=== PATIENT | female | born 1965 | race Caucasian/White ===

== ENCOUNTER 2025-01-31 05:58 | Inpatient (IN) ==
--- NOTE | 2024-11-14 09:19 | PAT Medication Instructions ---
Medication Instructions Date of Service November 14, 2024 Home Medications acetaminophen 650 mg tablet,extended release 500 mg PO TID PRN Pain albuterol sulfate 90 mcg/actuation aerosol inhaler 2 puff inhalation Q6H PRN Shortness Of Breath ascorbic acid (vitamin C) 500 mg tablet (Vitamin C) 500 mg PO QAM cholecalciferol (vitamin D3) 100 mcg (4,000 unit) capsule 4,000 unit PO QAM escitalopram oxalate 10 mg tablet 10 mg PO HS fluticasone propionate 50 mcg/actuation nasal spray,suspension (Flonase Allergy Relief) 1 spray intranasal QAM levothyroxine 150 mcg tablet 175 mcg PO QAM umeclidinium 62.5 mcg-vilanterol 25 mcg/actuation powdr for inhalation (Anoro Ellipta) 1 inh inhalation QAM pembrolizumab 25 mg/mL intravenous solution (Keytruda) 25 mg IV .Q6WK tramadol 50 mg tablet 50 mg PO TID ASK your prescriber and surgeon pembrolizumab 25 mg/mL intravenous solution (Keytruda) 25 mg IV .Q6WK DO NOT take the morning of surgery ascorbic acid (vitamin C) 500 mg tablet (Vitamin C) 500 mg PO QAM cholecalciferol (vitamin D3) 100 mcg (4,000 unit) capsule 4,000 unit PO QAM Take morning of surgery With a small sip of water, OTHERWISE NOTHING TO EAT OR DRINK AFTER MIDNIGHT: acetaminophen 650 mg tablet,extended release 500 mg PO TID PRN Pain (if needed) albuterol sulfate 90 mcg/actuation aerosol inhaler 2 puff inhalation Q6H PRN Shortness Of Breath (use if needed; please bring rescue inhaler with you to hospital day of surgery if possible) fluticasone propionate 50 mcg/actuation nasal spray,suspension (Flonase Allergy Relief) 1 spray intranasal QAM levothyroxine 150 mcg tablet 175 mcg PO QAM umeclidinium 62.5 mcg-vilanterol 25 mcg/actuation powdr for inhalation (Anoro Ellipta) 1 inh inhalation QAM tramadol 50 mg tablet 50 mg PO TID Take evening before surgery acetaminophen 650 mg tablet,extended release 500 mg PO TID PRN Pain (if needed) albuterol sulfate 90 mcg/actuation aerosol inhaler 2 puff inhalation Q6H PRN Shortness Of Breath (if needed) escitalopram oxalate 10 mg tablet 10 mg PO HS tramadol 50 mg tablet 50 mg PO TID Other Notes If you have any questions please call us at [phone] or [phone] or [phone] or [phone]
--- NOTE | 2024-11-19 13:11 | Anesthesiology Consultation ---
Date of Service November 19, 2024 Assessment & Plan (1) Encounter for pre-operative examination: Chart Review Chart Review: Pending: Refer to Additional Notes / Consult section (pending 11/22/[address], surgeon ordered PCP clearance 11/26/24, vascular surgeon evaluation ) and Patient seen in Pre Admission Testing - Please set up vascular surgeon optimization (discussed previous head/neck CTAs from [address] Pollard)- recommends vascular evaluation prior to surgery - please send optimization form along with head CTA 07/26/22 and head/neck CTA 07/22/[address] Biggs's office - Please obtain chest CT scheduled 11/22/24 at [facility] - Awaiting PCP clearance 11/26/24 ([facility]) Per PAT appt on 11/19/24, no recent illness/disease exposures, illness related symptoms, or recent illness/disease positive tests. Will leave to surgeon's discretion if preop Covid testing needed Pt seen by neurosurgery 08/10/22= Seen for routine follow up after recent hospital visit. Subarachnoid hemorrhagesmall frontal on head CT from outside hospital 07/2022. Patient underwent CTA showing no underlying vascular pathology. Patient discharged and presented to ED few days later with persistent headaches. Another CTA completed again showed no underlying vascular pathology. Patient presents today in clinic without complaint. Headaches are resolved and patient feels fine. Patient had repeat noncontrast head CT 08/05/2022 showing near total resolution of previously identified subarachnoid hemorrhage. Imaging results reviewed with patient. No further imaging needed. Return to clinic as needed. Teaching & Discussion Pre-Anesthesia Teaching/Discussion Notes: Instructed NPO after midnight before surgery,except medications with 15 cc of water. Medication instructions provided according to the PAT guidelines. History Surgery Operation Date: 12/10/24 10:05 Proposed Procedures p L4-S1 Decompression and Fusion with Spinal Cord Monitoring - Jc Nur, Height/Weight Height: 5 ft 6 in Weight: 111.3 kg Allergies Allergy/AdvReac Type Severity Reaction Status Date / Time egg Allergy Mild nasal Verified 11/08/24 08:54 congestion mold Allergy Mild nasal Verified 11/08/24 08:54 congestion/headache Penicillins Allergy Mild Rash Verified 11/08/24 08:54 fentanyl AdvReac Mild "kept me Verified 11/08/24 08:54 awake that night afterwards, I could not sleep" Medications Home Medications Medication Instructions Recorded Confirmed Last Taken acetaminophen 650 mg 500 mg PO TID PRN Pain 04/27/23 11/08/24 Unknown tablet,extended release albuterol sulfate 90 mcg/actuation 2 puff inhalation Q6H PRN 04/27/23 11/08/24 Unknown aerosol inhaler Shortness Of Breath ascorbic acid (vitamin C) 500 mg 500 mg PO QAM 04/27/23 11/08/24 Unknown tablet (Vitamin C) cholecalciferol (vitamin D3) 100 4,000 unit PO QAM 04/27/23 11/08/24 Unknown mcg (4,000 unit) capsule escitalopram oxalate 10 mg tablet 10 mg PO HS 04/27/23 11/08/24 Unknown fluticasone propionate 50 1 spray intranasal QAM 04/27/23 11/08/24 Unknown mcg/actuation nasal spray,suspension (Flonase Allergy Relief) levothyroxine 150 mcg tablet 175 mcg PO QAM 04/27/23 11/08/24 Unknown umeclidinium 62.5 mcg-vilanterol 1 inh inhalation QAM 04/27/23 11/08/24 Unknown 25 mcg/actuation powdr for inhalation (Anoro Ellipta) pembrolizumab 25 mg/mL intravenous 25 mg IV .Q6WK 11/08/24 11/08/24 Unknown solution (Keytruda) tramadol 50 mg tablet 50 mg PO TID 11/08/24 11/08/24 Unknown pantoprazole PRN reflux 11/19/24 Unknown Past Medical History Medical History Anxiety Brain bleed - Subarachnoid hemorrhage 07/2022- had epidural injection - developed headache- suspected spinal fluid leak- had blood patch completed. Later presented to hospital- CT scan showed small left frontal subarachnoid hemorrhage - Seen by [facility] neurosurgery 08/2022- no further imaging needed. Follow up PRN - Pt denies any current issues Chronic back pain Chronic obstructive pulmonary disease inhaler daily and prn--per pt is well controlled DVT (deep venous thrombosis) Possibly- during 20+ years ago- no known current issues GERD (gastroesophageal reflux disease) Occ- diet dependent- relieved with OTC antacids History of COVID-19 x2--last 2021--mild symptoms, no symptoms now History of lung cancer dx 07/2023- completed chemo in 2023; currently in remission>> follows w/ Dr Hiren turcios, [place], [place]; follows with pulm on Keytruda History of skin cancer removed in office Hypertension Hypothyroidism Post surgical Lower extremity edema Chronic - x 5-7 years s/p LE ablation on each leg for LE venous insufficiency LE edema - chronic and stable Morbid obesity with BMI of 40.0-44.9, adult Prediabetes diet controlled PVD (peripheral vascular disease) - Complete occlusion of left ICA with distal supraclinoid reconstitution per 07/22/22 neck/head CTA; numerous intracranial arterial stenoses per 07/26/22 head CTA Sleep apnea cpap Thyroid cancer 2016-- s/p thyroidectomy Urinary incontinence Exercise / Class Metabolic Activity III < 4 Walking/Shop/Light housework (no chest pain or SOB with flat surface ambulation ) Past Family History Family History Other No family history of adverse response to anesthesia Past Surgical History Surgical History History of cholecystectomy History of colonoscopy History of esophagogastroduodenoscopy (EGD) History of lung biopsy 08/2023 History of nasal polypectomy History of surgical removal of ganglion cyst x2--one on each wrist History of tonsillectomy and adenoidectomy x2 History of total thyroidectomy 2017 for thyroid cancer @ [facility] [place] History of varicose vein ligation one in each leg History of wisdom tooth extraction Past Anesthesia History No Hx of Anesthesia Complications and No Family Hx of Anesthesia Complications History of PONV No Hx of PONV and Hx of Motion Sickness Social History Smoking Status: Former smoker Do You Dip or Chew Tobacco: No Smoking End Date: quit 08/2023 Hx Alcohol Use: No Hx Substance Use: No substance use type: does not use Review of Systems - Chronic cough- secondary to COPD- stable - Chronic sneezing - secondary to allergies- stable Patient denies chest pain, shortness of breath at rest, wheezing, palpitations. No hx of seizures, stroke, [place]. No hx of blood clots or blood transfusions Physical Exam Vital Signs VITALS BP 111/77 P 74 TEMP 97.7 SP02 94% RESP 16 Constitutional no acute distress ENMT Mouth: no TMJ clicking Thyromental Distance: > or= 3.5 Finger Breadths (3.5) Mallampati Class: III Permanent implants to front teeth Missing side teeth Neck + limited neck extension Respiratory normal respiratory effort; no respiratory distress Auscultation: lungs clear to auscultation bilaterally; no wheezes Cardiovascular Rate/Rhythm: regular rate and regular rhythm Heart Sounds: no murmur Vessels: no carotid bruit Musculoskeletal Spine: + pain with cervical ROM (minimal) Extremities: extremities normal to inspection Psychiatric Orientation: alert Lab Results Anesthesia Preop Results Results Anesthesia Widget: PT 10.2 Seconds (9.0-12.0) 11/19/24 PTT 29 Seconds (21-31) 11/19/24 INR 0.9 (0.9-1.1) 11/19/24 HA1c 6.1 % (4.5-5.6) H 11/19/24 Urine Color Yellow 11/19/24 Urine Appearance Clear (Clear) 11/19/24 Urine pH 5.5 (4.5-7.5) 11/19/24 Urine Specific [place] 1.025 (1.000-1.030) 11/19/24 Urine Protein Negative (Negative) 11/19/24 Urine Glucose (UA) Negative (Negative) 11/19/24 Urine Ketones Trace (Negative) H 11/19/24 Urine Blood Negative (Negative) 11/19/24 Urine Nitrite Negative (Negative) 11/19/24 Urine Bilirubin Negative (Negative) 11/19/24 Urine Urobilinogen Negative (Negative) 11/19/24 Urine Leukocyte Esterase Negative (Negative) 11/19/24 Blood Type A Positive 11/19/24 Antibody Screen NEGATIVE 11/19/24 Testing Laboratory Results 11/15/24= WBC: 5.8 H/H: 13.5/39.2 PLATELETS: 288 SODIUM: 137 POTASSIUM: 3.7 CHLORIDE: 106 CO2: 22 BUN: 23 CREATININE: 1.11 GLUCOSE: 109 Electrocardiogram Date: 11/19/24 Findings: + NSR @ (68bpm) Normal EKG per cardio Other Testing CT head/brain 08/05/2022 = small amount of residual subarachnoid hemorrhage seen along the left frontal convexity, decreased from the prior head CT. Mucous retention cyst within the left maxillary sinus. Head CTA 07/26/2022 = intracranial portions of right ICA demonstrated mild atherosclerotic plaque without significant stenosis or aneurysm. Intracranial portions of left internal carotid artery are completely occluded. Multifocal moderate stenosis are seen throughout the right and left M2 and M3 branchesunchanged from prior. Multifocal mild stenosis seen in the right and left A2 and A3 branchesunchanged from prior. Mild stenosis of the left P2P3 junctionunchanged from prior. Impression: Numerous intracranial arterial stenosis. These are grossly unchanged compared to the prior recent studies. While there is no definite beaded appearance, the stenosis are more numerous and more prominent than is typical for patient's age and a component of vasculitis or vasospasm is not excluded. Head/neck CTA 07/22/2022 = complete occlusion of the left ICA with distal supraclinoid reconstitution. 50% stenosis of the mid left common carotid artery. Right sided persistent circulation. No intracranial aneurysm identified.
[2025-01-31] MEDS: ACETAMINOPHEN 500 MG TAB PO SCH (06:39)
[2025-01-31] MEDS: CeleBREX 200 MG CAP PO SCH (06:39)
[2025-01-31] MEDS: GABAPENTIN 600 MG DOSE PO SCH (06:39)
[2025-01-31] MEDS: LR 15ML/HR IV SCH (06:40)
[2025-01-31] MEDS: LR 60ML/HR IV SCH (06:40)
[2025-01-31] MEDS ORDERED: MIDAZOLAM HCL 1 MG/ML 2ML VIAL ONE (07:15)
[2025-01-31] MEDS ORDERED: PHENYLEPHRINE HCL 10 MG/ML VIAL ONE (07:15)
[2025-01-31] MEDS ORDERED: DEXAMETHASONE SOD INJ 4 MG/ML VIAL ONE (07:15)
[2025-01-31] MEDS ORDERED: DexMEDEtomidine HCL IV 100 MCG/ML VIAL IV ONE (07:15)
[2025-01-31] MEDS ORDERED: ONDANSETRON INJ 2 MG/ML 2 ML VIAL ONE (07:15)
[2025-01-31] MEDS ORDERED: SODIUM CHLORIDE 0.9% PF INJ 10 ML VIAL ONE (07:15)
[2025-01-31] MEDS ORDERED: KETAMINE HCL 10MG/ML SYR ONE (07:15)
[2025-01-31] MEDS ORDERED: ROCURONIUM BROMIDE 10 MG/ML 5 ML VIAL IV ONE ×2 (07:15→08:42)
[2025-01-31] MEDS ORDERED: HYDROmorphone INJ 2 MG/ML SYR/VIAL ONE (07:15)
[2025-01-31] MEDS ORDERED: LIDOCAINE 2% 2 ML VIAL/AMP(20MG/ML) INFIL ONE (07:15)
[2025-01-31] MEDS ORDERED: PROPOFOL IV EMULSION 10 MG/ML 20 ML VIAL IV ONE (07:26)
--- NOTE | 2025-01-31 07:52 | History & Physical Bridge Note ---
Date of Service January 31, 2025 History & Physical Bridge Note I have examined the patient, reviewed the History & Physical and in the interval since the performance of the History & Physical I have noted the following changes of clinical significance: no changes noted
--- NOTE | 2025-01-31 07:53 | History & Physical Report ---
Date of Service January 31, 2025 Assessment & Plan (1) Multilevel lumbosacral spondylosis with radiculopathy: Plan: L4-S1 decompression and fusion History of Present Illness Chief Complaint: Back and leg pain Primary Care Provider: Rogelio Yeboah This is a 59-year-old female presents chronic persistent back and leg pain after failing course of nonoperative care is here for surgical invention. Allergies Allergy/AdvReac Type Severity Reaction Status Date / Time egg Allergy Mild nasal Verified 01/31/25 06:18 congestion mold Allergy Mild nasal Verified 01/31/25 06:18 congestion/headache Penicillins Allergy Mild Rash Verified 01/31/25 06:18 fentanyl AdvReac Mild "kept me Verified 01/31/25 06:18 awake that night afterwards, I could not sleep" Home Medications Medication Instructions Recorded Confirmed Type acetaminophen 650 mg 500 mg PO TID PRN Pain 04/27/23 01/31/25 History tablet,extended release albuterol sulfate 90 mcg/actuation 2 puff inhalation Q6H PRN 04/27/23 01/31/25 History aerosol inhaler Shortness Of Breath ascorbic acid (vitamin C) 500 mg 500 mg PO QAM 04/27/23 01/31/25 History tablet (Vitamin C) cholecalciferol (vitamin D3) 100 4,000 unit PO QAM 04/27/23 01/31/25 History mcg (4,000 unit) capsule escitalopram oxalate 10 mg tablet 10 mg PO HS 04/27/23 01/31/25 History fluticasone propionate 50 1 spray intranasal QAM 04/27/23 01/31/25 History mcg/actuation nasal spray,suspension (Flonase Allergy Relief) levothyroxine 150 mcg tablet 175 mcg PO QAM 04/27/23 01/31/25 History umeclidinium 62.5 mcg-vilanterol 1 inh inhalation QAM 04/27/23 01/31/25 History 25 mcg/actuation powdr for inhalation (Anoro Ellipta) pembrolizumab 25 mg/mL intravenous 25 mg IV .Q6WK 11/08/24 01/31/25 History solution (Keytruda) tramadol 50 mg tablet 50 mg PO TID 11/08/24 01/31/25 History pantoprazole 40 mg PO DAILY PRN reflux 11/19/24 01/31/25 History atorvastatin 40 mg tablet 40 mg PO QAM 01/24/25 01/31/25 History Past Med/Surg History Problem List (Updated 01/31/25 @ 07:53 by Jc Nur DO) Multilevel lumbosacral spondylosis with radiculopathy Encounter for pre-operative examination Medical History (Updated 01/31/25 @ 07:53 by Jc Nur DO) Dyslipidemia Port-A-Cath in place Anxiety Prediabetes diet controlled History of lung cancer dx 07/2023- completed chemo in 2023; currently in remission>> [place] follows with pulm on Keytruda PVD (peripheral vascular disease) - Complete occlusion of left ICA with distal supraclinoid reconstitution per 07/22/22 neck/head CTA; numerous intracranial arterial stenoses per 07/26/22 head CTA > 01/2025, pt states she saw a vascular doctor- no intervention felt necessary at this time GERD (gastroesophageal reflux disease) Occ- diet dependent- relieved with OTC antacids DVT (deep venous thrombosis) Possibly- during 20+ years ago- no known current issues Lower extremity edema Chronic - x 5-7 years s/p LE ablation on each leg for LE venous insufficiency LE edema - chronic and stable Morbid obesity with BMI of 40.0-44.9, adult Chronic back pain Urinary incontinence Hypothyroidism Post surgical History of skin cancer removed in office Thyroid cancer 2017-- s/p thyroidectomy Hypertension Sleep apnea cpap History of COVID-19 x2--last 2021--mild symptoms, no symptoms now Chronic obstructive pulmonary disease inhaler daily and prn--per pt is well controlled Brain bleed - Subarachnoid hemorrhage 07/2022- had epidural injection - developed headache- suspected spinal fluid leak- had blood patch completed. Later presented to hospital- CT scan showed small left frontal subarachnoid hemorrhage - Seen by [facility] neurosurgery 08/2022- no further imaging needed. Follow up PRN - Pt denies any current issues Surgical History History of lung biopsy 08/2023 History of surgical removal of ganglion cyst x2--one on each wrist History of colonoscopy History of esophagogastroduodenoscopy (EGD) History of cholecystectomy History of varicose vein ligation one in each leg History of wisdom tooth extraction History of total thyroidectomy 2017 [place] [facility] [place] History of tonsillectomy and adenoidectomy x2 History of nasal polypectomy Family History Other No family history of adverse response to anesthesia Social History Smoking Status: Former smoker Tobacco Type: Cigarettes Smoking End Date: Aug 2023; Second Hand Exposure: No; Do You Dip or Chew Tobacco: No; Tobacco Cessation Education Requested by Patient: No Hx Alcohol Use: No Hx Substance Use: No Preferred Language: [place] Communication Ability: Effective Service Advocate Contact Required: No Beliefs That Will Affect Care: None Current Living Situation: Spouse Current Living Situation Comment: Lives with and son Other Information That Helps Us Care for You: No Feels Safe at Home: Yes Safety Concerns: Feels Safe At This Time Assistive Devices: Contacts, CPAP and Glasses Assistive Devices Comment: perm bridge Physical Exam Physical Exam: Patient is alert and oriented Heart regular rhythm lungs clear Results & Data Results & Data Vital Signs (Past 12 Hours) Vital Signs Temp Pulse Resp BP Pulse Ox O2 Del Method 01/31/25 06:33 Room Air 01/31/25 06:30 36.9 C 72 95 H 138/69 95 Room Air
[2025-01-31] MEDS: BUPIVACAINE/EPINEPHRINE 0.25% 1:200,000 30 ML VIAL ONE (09:05)
[2025-01-31] MEDS: ceFAZolin 330 MG/ML 1 GM VIAL ONE (09:07)
[2025-01-31] MEDS: FLOSEAL HEMOSTATIC MATRIX 10ML TOP ONE (09:58)
[2025-01-31] MEDS ORDERED: SUGAMMADEX SODIUM 200 MG/2 ML VIAL IV ONE (10:02)
--- NOTE | 2025-01-31 10:26 | Operative Report ---
Post Operative Report Pre & Post Diagnosis Operation Date: 01/31/25 07:45 Pre-Op Diagnosis: #1 multilevel Lumbosacral Spondylosis with radiculopathy #2 lumbar spinal stenosis Post-Op Diagnosis: Same I identified the patient and participated in the time-out.: Yes Procedure Operation Date: 01/31/25 07:45 Actual Procedures #1 lumbar decompression bilaterally facetectomies and foraminotomies L3-L4, L4- L5 and L5-S1. #2 posterior spinal fusion L4-S1. #3 placement posterior instrumentation L4-S1 using Laguerre. #4 interbody fusion L4-L5 L5-S1. #5 plac ement Spira 13 x 26 mm x 2 at L4-L5 and 11 x 26 mm x 2 at L5-S1. #6 placement locally harvested morselized autograft and posterior gutters. #7 placement infuse collagen sponge combined with Koros in the posterior lateral gutters and os design in the interbody space. #8 application of versa wrap over the exposed dura. Surgeon Jc Nur, DO Founder President And Ce[employer] None Estimated Blood Loss 450 Findings See Below The patient is 5 foot 6 weighing 112 kg with a BMI in excess of 39. The patient's body habitus did contribute to significant technical difficulty from positioning exposure and the procedure itself. This at least 50% increased operative time. And recommending a modifier 22. Specimens None Indications This is a 59-year-old female presents publish diagnosis with a failing course of nonoperative care is here for the above-mentioned procedure. Description of Procedure Patient was met with identified informed consent obtained. Patient was then taken to the operative suite underwent intubation placed in a prone position on the Bertin table top of the Jus frame. Operative promises well-padded eyes inspected to ensure no external precipice upon them. This point lumbar spine was prepped and draped in normal sterile fashion. Sharp dissection with the assistance of Bovie cautery performed down to and exposing the lamina transverse processes of L4-5 and the sacral ala bilaterally. From caudal to cephalad fashion complete laminectomy L5 L4 including bilateral medial facetectomies and foraminotomies. A partial laminectomy of L3 was performed including bilateral medial facetectomies to address all subarticular stenosis. Pedicle screws were then placed in L3-4 L5 and S1 levels bilaterally with assistance of fluoroscopy and the properly sized caridad placed. By way of a transforaminal approach on the right a discectomy of L5-S1 was performed endplates guided to subcortically bone and 11 x 26 mm spiral cage tapped into position. Then proceeded to the left transforaminal region at L5-S1. Again discectomy performed. Endplates corrected to subcortical bleeding bone. A second 11 x 26 mm spiral cage tapped in position. Then proceeded L4-L5 and by way the transforaminal approach on the left discectomy was performed. Endplates guided to subcortical bleeding bone and a 13 x 26 mm spiral cage filled was tapped into position. Then proceeded the right transforaminal region at L4-5. Again discectomy performed. Endplates guided to subcortical bleeding bone. A second 13 x 26 mm spiral cage was tapped into position. Please note all cages were filled with os design bone graft. Steri-Strips sterile dressing placed. Patient waken taken PACU stable condition. the rods were then compressed locked in final position bilaterally. The transverse processes of L4-L5 and the sacral ala burred to subcortical bleeding bone. Infuse collagen sponge bath Koros and local autograft placed in posterior gutters. Versa wrap placed of exposed dura. 15 round GALE drain inserted. The incision was then closed with subcutaneous Vicryl and 4 Monocryl for final skin closure. Steri-Strips sterile dressing placed. Patient waken taken PACU stable condition. Im ordering 10 grams of Collagen Powder ([facility] A6010 Primary Dressing) and 10 bordered super absorbent ([facility] A6196 Secondary Dressing) to treat an incision wound that was caused by a spine procedure. The incision is approximately 2 cm(W) x 2 cm(L) down to the spinal column and epidural space 2 cm (D) in size and is a full thickness wound showing no signs of infection. Collagen comes in 1 gram packets so 10 packets were ordered. Given the size of the wound, with moderate exudate I chose to order a 10 day supply. The patient will be provided instructions for proper application of the collagen wound kit. The patient will be asked to apply the collagen powder daily and then cover it with sterile dressings dispensed. Collagen was selected as I expect the collagen to attract monocytes and fibroblasts, act as a sacrificial substrate for MMPs, and ultimately proved a matrix for tissue and vessel growth. The collagen will act as a primary dressing in this scenario. It is medically necessary for proper healing of these wounds to improve bioavailability and contact with each wound surface, this is also to help prevent infection of wounds and promote healing ultimately leading to a better healing outcome and limit the risk of infection. I attest to the content of the Intraoperative Record and any orders documented therein. Any exceptions are noted below.
[2025-01-31] MEDS ORDERED: ONDANSETRON INJ 2 MG/ML 2 ML VIAL IV PRN (10:40)
[2025-01-31] MEDS ORDERED: ATROPINE SULFATE 0.1 MG/ML 10ML SYR IV PRN (10:40)
[2025-01-31] MEDS: HYDROmorphone INJ 1 MG/ML SYRINGE IV PRN (10:50)
[2025-01-31] MEDS: HYDROmorphone INJ 1 MG/ML SYRINGE ONE (11:05)
--- NOTE | 2025-01-31 11:31 | Anesthesiology Progress Note ---
Date of Service January 31, 2025 Anesthesia Post Procedure Vital Signs Vital Signs: Temp Pulse Pulse Resp BP Pulse Ox O2 Del Method 01/31/25 11:30 74 12 109/67 95 Nasal Cannula 01/31/25 11:20 36.4 C L 73 12 110/69 95 Nasal Cannula 01/31/25 11:10 88 14 136/66 96 Oxymask 01/31/25 11:00 79 14 130/79 97 Oxymask 01/31/25 10:50 77 12 125/78 95 Oxymask 01/31/25 10:40 85 12 138/66 97 Oxymask 01/31/25 10:30 36.1 C L 80 20 143/75 H 97 Oxymask 01/31/25 06:33 Room Air 01/31/25 06:30 36.9 C 72 95 H 138/69 95 Room Air O2 Flow Rate 01/31/25 11:30 3 01/31/25 11:20 3 01/31/25 11:10 2 01/31/25 11:00 4 01/31/25 10:50 4 01/31/25 10:40 4 01/31/25 10:30 6 01/31/25 06:33 01/31/25 06:30 Pain Intensity Back: Pain Intensity: 3 Transfer of Care Handoff Completed per policy Notes Mental Status: alert / awake / arousable and participated in evaluation Patient Amnestic to Procedure: Yes Nausea / Vomiting: adequately controlled Pain: adequately controlled Airway Patency, RR, SpO2: stable & adequate BP & HR: stable & adequate Hydration State: stable & adequate Anesthetic Complications: no major complications apparent and Pt Satisfied with anesthetic care
--- NOTE | 2025-01-31 12:05 | Fluoroscopy Report ---
FL lumbar spine 2-3V CLINICAL HISTORY: L4-S1 D/F COMPARISON STUDY: 9 FLUOROSCOPY TIME: 17 seconds FLUOROSCOPY IMAGES: 3 EXPOSURE DOSE: 17 mGy FINDINGS: Fluoroscopy was provided for lumbar surgery. IMPRESSION: Intraoperative fluoroscopy. ACT 112: Negative or not required by law. Electronically signed by: Ranjan Coulter M.D. 01/31/2025 12:03 PM
[2025-01-31] MEDS ORDERED: DO NOT ADMINISTER FLU VACCINE PRN (12:16)
[2025-01-31] MEDS ORDERED: DO NOT ADMINISTER PNEUMOCOCCAL VACCINE PRN (12:16)
[2025-01-31] MEDS ORDERED: ONDANSETRON 4 MG OD TAB PO PRN (12:16)
[2025-01-31] MEDS ORDERED: ACETAMINOPHEN 1,000 MG/100 ML VIAL IV PRN (12:16)
[2025-01-31] MEDS ORDERED: diphenhydrAMINE Capsule 25 MG CAP PO PRN (12:16)
[2025-01-31] MEDS ORDERED: LORazepam 0.5 MG TAB PO PRN (12:16)
[2025-01-31] MEDS ORDERED: ALBUTEROL HFA 8 GM INHALER INH PRN (12:16)
[2025-01-31] MEDS ORDERED: PROMETHAZINE 12.5 MG/50.5 ML BAG IV PRN (12:16)
[2025-01-31] MEDS ORDERED: NALOXONE HCL 0.4 MG/1 ML VIAL/CARP IV PRN (12:16)
[2025-01-31] MEDS ORDERED: SOD PHOSPHATE/SOD BIPHOSPHATE ENEMA 132 ML BTL PR PRN (12:16)
[2025-01-31] MEDS ORDERED: ALUMINUM/MAGNESIUM SUSP 30 ML UDC PO PRN (12:16)
[2025-01-31] MEDS ORDERED: METOCLOPRAMIDE HCL INJ 5 MG/ML 2 ML VIAL IV PRN (12:16)
--- NOTE | 2025-01-31 13:21 | Consultation ---
Date of Consultation January 31, 2025 Assessment & Plan (1) Multilevel lumbosacral spondylosis with radiculopathy: (2) Bilateral carotid artery stenosis: (3) Dyslipidemia: (4) Hypothyroidism: (5) Chronic obstructive pulmonary disease: (6) Anxiety: (7) GERD (gastroesophageal reflux disease): Plan 59 year old female with PMH significant for CAD, bilateral carotid artery stenosis, history of thyroid cancer s/p thyroidectomy and post-surgical hypothyroidism, COPD, GERD, anxiety, history of stage IV carcinoma of the lung in remission on Keytruda, and multilevel lumbosacral spondylosis with radiculopathy who is status post L4-S1 decompression and fusion on 01/31/[address] Nur. We have been consulted for post operative medical management. Multilevel lumbosacral spondylosis with radiculopathy POD#0 L4-S1 decompression and fusion on 01/31/[address] Nur Activity level, pain control, bowel regimen, DVT prophylaxis per primary team Encourage incentive spirometry PT/OT in am Monitor am labs for post-op anemia - EBL 450cc Bilateral carotid artery stenosis Follows with Vascular Surgery for medical management Continue atorvastatin Hypothyroidism Continue levothyroxine COPD Continue inhalers GERD Continue pantoprazole Anxiety Continue escitalopram History of lung cancer In remission On Keytruda every 6 weeks DVT Prophylaxis: SCDs and TEDs per primary team Code Status: FULL CODE - As per discussion at bedside with the patient. PCP: Rogelio Yeboah ([facility]) Patient seen in collaboration with Dr Patton. Please see addendum. Thank you for this consultation. We will continue to follow this patient with you. [facility] available 27/02 via the role in [employer] - please don't hesitate to reach out with questions. I spent a total of 60 minutes coordinating, documenting and providing care for this patient excluding time spent in the performance of separately billed services or time spent by another provider/QHP. Supervising Physician Co-Signing Physician Notes 59-year-old lady was seen and examined at bedside as medical consult status post L4 - S1 decompression and fusion. Patient reports improvement in her BLE radicular signs and symptoms, reports operative site pain under control, denies recent flulike illness or febrile illness, is not on blood thinner at home. Pain management, nausea control, bowel regimen. DVT prophylaxis and PT as per primary team. Watch for acute blood loss anemia, labs in AM. On exam: Patient on 2 L oxygen via nasal cannula, low back dressing w/o soakage, GALE drain with serosanguineous collection. Rest of the examination as above. Total time spent independently: 15 minutes. I have seen and examined the patient and have discussed the case with the provider above. I agree with the assessment and plan as stated.Follow-up History of Present Illness Requesting Physician: Jc Nur DO Reason for Consultation: Post operative medical management Attending Physician: Jc Nur DO History of Present Illness 59 year old female with PMH significant for CAD, bilateral carotid artery stenosis, history of thyroid cancer s/p thyroidectomy and post-surgical hypothyroidism, COPD, GERD, anxiety, history of stage IV carcinoma of the lung in remission on Keytruda, and multilevel lumbosacral spondylosis with radiculopathy who is status post L4-S1 decompression and fusion on 01/31/[address] Nur. We have been consulted for post operative medical management. Patient was seen in her room post-operatively. She reports she is doing well. No co mplaints of pain. Reports slight numbness in her left toes. Denies headaches, dizziness, chest pain, SOB, abdominal pain, N/V/D. She was able to eat lunch. Allergies Allergy/AdvReac Type Severity Reaction Status Date / Time egg Allergy Mild nasal Verified 01/31/25 06:18 congestion mold Allergy Mild nasal Verified 01/31/25 06:18 congestion/headache Penicillins Allergy Mild Rash Verified 01/31/25 06:18 fentanyl AdvReac Mild "kept me Verified 01/31/25 06:18 awake that night afterwards, I could not sleep" Home Medications Medication Instructions Recorded Confirmed Type acetaminophen 650 mg 500 mg PO TID PRN Pain 04/27/23 01/31/25 History tablet,extended release albuterol sulfate 90 mcg/actuation 2 puff inhalation Q6H PRN 04/27/23 01/31/25 History aerosol inhaler Shortness Of Breath ascorbic acid (vitamin C) 500 mg 500 mg PO QAM 04/27/23 01/31/25 History tablet (Vitamin C) cholecalciferol (vitamin D3) 100 4,000 unit PO QAM 04/27/23 01/31/25 History mcg (4,000 unit) capsule escitalopram oxalate 10 mg tablet 10 mg PO HS 04/27/23 01/31/25 History fluticasone propionate 50 1 spray intranasal QAM 04/27/23 01/31/25 History mcg/actuation nasal spray,suspension (Flonase Allergy Relief) levothyroxine 150 mcg tablet 175 mcg PO QAM 04/27/23 01/31/25 History umeclidinium 62.5 mcg-vilanterol 1 inh inhalation QAM 04/27/23 01/31/25 History 25 mcg/actuation powdr for inhalation (Anoro Ellipta) pembrolizumab 25 mg/mL intravenous 25 mg IV .Q6WK 11/08/24 01/31/25 History solution (Keytruda) tramadol 50 mg tablet 50 mg PO TID 11/08/24 01/31/25 History pantoprazole 40 mg PO DAILY PRN reflux 11/19/24 01/31/25 History atorvastatin 40 mg tablet 40 mg PO QAM 01/24/25 01/31/25 History Patient History Medical History (Updated 01/31/25 @ 13:15 by HARLEY Santoro) Bilateral carotid artery stenosis Encounter for pre-operative examination Dyslipidemia Port-A-Cath in place Anxiety Prediabetes diet controlled History of lung cancer dx 07/2023- completed chemo in 2023; currently in remission[place] follows with pulbreana on Keytruda PVD (peripheral vascular disease) - Complete occlusion of left ICA with distal supraclinoid reconstitution per 07/22/22 neck/head CTA; numerous intracranial arterial stenoses per 07/26/22 head CTA > 01/2025, pt states she saw a vascular doctor- no intervention felt necessary at this time GERD (gastroesophageal reflux disease) Occ- diet dependent- relieved with OTC antacids DVT (deep venous thrombosis) Possibly- during 20+ years ago- no known current issues Lower extremity edema Chronic - x 5-7 years s/p LE ablation on each leg for LE venous insufficiency LE edema - chronic and stable Morbid obesity with BMI of 40.0-44.9, adult Chronic back pain Urinary incontinence Hypothyroidism Post surgical History of skin cancer removed in office Thyroid cancer 2017-- s/p thyroidectomy Hypertension Sleep apnea cpap History of COVID-19 x2--last 2021--mild symptoms, no symptoms now Chronic obstructive pulmonary disease inhaler daily and prn--per pt is well controlled Brain bleed - Subarachnoid hemorrhage 07/2022- had epidural injection - developed headache- suspected spinal fluid leak- had blood patch completed. Later presented to hospital- CT scan showed small left frontal subarachnoid hemorrhage - Seen by [facility] neurosurgery 08/2022- no further imaging needed. Follow up PRN - Pt denies any current issues Surgical History History of lung biopsy 08/2023 History of surgical removal of ganglion cyst x2--one on each wrist History of colonoscopy History of esophagogastroduodenoscopy (EGD) History of cholecystectomy History of varicose vein ligation one in each leg History of wisdom tooth extraction History of total thyroidectomy 2016 for thyroid cancer @ [facility] [place] History of tonsillectomy and adenoidectomy x2 History of nasal polypectomy Family History Other No family history of adverse response to anesthesia Social History Smoking Status: Former smoker Tobacco Type: Cigarettes Smoking End Date: Aug 2023; Second Hand Exposure: No; Do You Dip or Chew Tobacco: No; Tobacco Cessation Education Requested by Patient: No Hx Alcohol Use: No Hx Substance Use: No Preferred Language: Turkmen Communication Ability: Effective Marketing Production Specialist Required: No Beliefs That Will Affect Care: None Current Living Situation: Spouse Current Living Situation Comment: Lives with and son Other Information That Helps Us Care for You: No Feels Safe at Home: Yes Safety Concerns: Feels Safe At This Time Assistive Devices: None Assistive Devices Comment: perm bridge Review of Systems Review of Systems: All systems reviewed & are unremarkable except as noted in HPI & below Physical Exam Physical Exam: General/Psych: WD/WN, sitting up in bed, NAD, conversing easily Head: normocephalic, atraumatic Eyes: normal inspection, PERRL, conjunctivae pink, anicteric sclerae ENT: external ear and nose normal, oropharynx normal Neck: normal visual inspection, trachea midline Respiratory: normal respiratory effort, lungs clear to auscultation, no wheeze/rales/rhonchi, no accessory muscle use Cardiovascular: regular rate and rhythm, no murmur/rub/gallop Extremities: no cyanosis or clubbing, normal peripheral pulses, no BLE edema Abdomen/GI: normal bowel sounds, soft, nontender : estevez in place Neurologic/MSK: A+Ox3, motor strength 5/5, moves all extremities, BLE sensation intact Skin: no rashes, normal color, warm and dry, island dressing c/d/i, GALE drain with sanguinous drainage Results & Data Vital Signs (Past 12 Hours) Vital Signs Temp Pulse Pulse Resp BP Pulse Ox O2 Del Method 01/31/25 11:49 36.7 C 79 12 118/76 94 Nasal Cannula 01/31/25 11:40 78 12 121/69 94 Nasal Cannula 01/31/25 11:30 74 12 109/67 95 Nasal Cannula 01/31/25 11:20 36.4 C L 73 12 110/69 95 Nasal Cannula 01/31/25 11:10 88 14 136/66 96 Oxymask 01/31/25 11:00 79 14 130/79 97 Oxymask 01/31/25 10:50 77 12 125/78 95 Oxymask 01/31/25 10:40 85 12 138/66 97 Oxymask 01/31/25 10:30 36.1 C L 80 20 143/75 H 97 Oxymask 01/31/25 06:33 Room Air 01/31/25 06:30 36.9 C 72 95 H 138/69 95 Room Air O2 Flow Rate 01/31/25 11:49 3 01/31/25 11:40 3 01/31/25 11:30 3 01/31/25 11:20 3 01/31/25 11:10 2 01/31/25 11:00 4 01/31/25 10:50 4 01/31/25 10:40 4 01/31/25 10:30 6 01/31/25 06:33 01/31/25 06:30 Medications Administered Current Inpatient Medications Acetaminophen (Acetaminophen 500 Mg Tab) 1,000 mg PO PREOP JEREMY Stop: 01/31/25 18:00 Last Admin: 01/31/25 06:39 Dose: 1,000 mg Acetaminophen (Acetaminophen 500 Mg Tab) 1,000 mg PO Q8H PRN PRN Reason: MILD Pain (1,2,3) & Pre PT Stop: 03/02/25 12:15 Al Hydrox/Mg Hydrox/Simethicone (Aluminum/Magnesium Susp 30 Ml Udc) 30 ml PO Q6H PRN PRN Reason: Dyspepsia Stop: 03/02/25 12:15 Albuterol (Albuterol Hfa 8 Gm Inhaler) 2 puffs INH Q6H PRN PRN Reason: Shortness Of Breath Stop: 03/02/25 12:15 Ascorbic Acid (Ascorbic Acid 500 Mg Tab) 500 mg PO QAM JEREMY Stop: 03/03/25 08:59 Atorvastatin Calcium (Atorvastatin 40 Mg Tab) 40 mg PO QAM JEREMY Stop: 03/03/25 08:59 Atropine Sulfate (Atropine Sulfate 0.1 Mg/Ml 10ml Syr) 0.5 mg IV Q1M PRN PRN Reason: PACU Use-HR<40 &/or Bradycardi Stop: 01/31/25 18:40 Bisacodyl (Bisacodyl 10 Mg Supp) 10 mg KS DAILY PRN PRN Reason: Constipation Stop: 03/02/25 12:15 Celecoxib (Celebrex 200 Mg Cap) 200 mg PO PREOP JEREMY Stop: 01/31/25 18:00 Last Admin: 01/31/25 06:39 Dose: 200 mg Diphenhydramine HCl (Diphenhydramine Capsule 25 Mg Cap) 25 mg PO Q6H PRN PRN Reason: Allergic Rhinitis/Insomnia Stop: 03/02/25 12:15 Ephedrine Sulfate (Ephedrine Sulfate 50 Mg/Ml Amp) 5 mg IV Q5M PRN PRN Reason: PACU Use Only-SBP<90 mmHg Stop: 01/31/25 18:40 Escitalopram Oxalate (Escitalopram Oxalate 10 Mg Tab) 10 mg PO HS JEREMY Stop: 03/02/25 20:59 Famotidine (Famotidine 20 Mg Tab) 20 mg PO Q12H PRN PRN Reason: Dyspepsia Stop: 03/02/25 12:15 Fentanyl Citrate (Fentanyl Citrate Pf 100 Mcg/2 Ml Vial) 50 mcg IV Q5M PRN PRN Reason: PACU Use Only-Pain Stop: 01/31/25 18:40 Fluticasone Propionate (Fluticasone Propionate Na Spr 16 Gm Btl) 1 sprays NA QAM JEREMY Stop: 03/03/25 08:59 Gabapentin (Gabapentin 600 Mg Dose) 600 mg PO PREOP JEREMY Stop: 01/31/25 18:00 Last Admin: 01/31/25 06:39 Dose: 600 mg Hydromorphone HCl (Hydromorphone Inj 1 Mg/Ml Syringe) 0.25 mg IV Q5M PRN PRN Reason: PACU Use Only-Pain Stop: 01/31/25 18:40 Last Admin: 01/31/25 11:00 Dose: 0.25 mg Hydromorphone HCl (Hydromorphone Inj 0.5 Mg/0.5 Ml Syr) 0.5 mg IV Q3H PRN PRN Reason: MODERATE Pain(4,5,6)/Pre PT Stop: 02/14/25 12:15 Hydromorphone HCl (Hydromorphone Inj 1 Mg/Ml Syringe) 1 mg IV Q3H PRN PRN Reason: SEVERE Pain (7,8,9,10) Stop: 02/14/25 12:15 Hydroxyzine HCl (Hydroxyzine Hcl 25 Mg Tab) 25 mg PO Q8H PRN PRN Reason: Anxiety Stop: 03/02/25 12:15 Lactated Ringer's (Lr) 1,000 mls @ 15 mls/hr IV .Q24H JEREMY Stop: 02/01/25 05:59 Last Infusion: 01/31/25 07:57 Dose: Infused Lactated Ringer's (Lr) 1,000 mls @ 60 mls/hr IV .[id number] JEREMY Stop: 01/31/25 22:39 Last Admin: 01/31/25 06:40 Dose: Not Given Cefazolin Sodium (Ancef 2000mg) 2,000 mg in 15 mls @ 3.75 mls/min IV PREOP JEREMY; Protocol Stop: 01/31/25 18:00 Last Admin: 01/31/25 07:59 Dose: 3.75 mls/min Acetaminophen (Ofirmev) 1,000 mg in 100 mls @ 400 mls/hr IV Q8H PRN PRN Reason: MILD Pain (1,2,3) & Pre PT Stop: 02/01/25 12:16 Cefazolin Sodium (Ancef 2000mg) 2,000 mg in 15 mls @ 3.75 mls/min IV Q8H JEREMY; Protocol Stop: 02/01/25 00:33 Promethazine HCl (Phenergan) 12.5 mg in 50.5 mls @ 202 mls/hr IV Q6H PRN PRN Reason: Nausea And Vomiting Stop: 03/02/25 12:15 Dexamethasone 6 mg/ Syringe 1.5 mls @ 1 mls/min IV DAILY JEREMY Stop: 02/03/25 09:02 Influenza Virus Vaccine Quadrival (Do Not Administer Flu Vaccine) 1 each N/A PRN PRN PRN Reason: Notification Stop: 03/02/25 12:15 Levothyroxine Sodium (Levothyroxine Sodium 175 Mcg Tablet) 175 mcg PO QAM JEREMY Stop: 03/03/25 08:59 Lorazepam (Lorazepam 0.5 Mg Tab) 0.5 mg PO Q8H PRN PRN Reason: Sedation/Anxiety Stop: 03/02/25 12:15 Lorazepam (Lorazepam 2 Mg/1 Ml Vial) 0.5 mg IV Q8H PRN PRN Reason: Sedation/Anxiety Stop: 03/02/25 12:15 Magnesium Hydroxide (Magnesium Hydroxide Susp 30 Ml Udc) 30 ml PO Q24H PRN PRN Reason: Constipation Stop: 03/02/25 12:15 Metoclopramide HCl (Metoclopramide Hcl Inj 5 Mg/Ml 2 Ml Vial) 10 mg IV Q6H PRN PRN Reason: Nausea &/or Vomiting Stop: 03/02/25 12:15 Naloxone HCl (Naloxone Hcl 0.4 Mg/1 Ml Vial/Carp) 0.1 mg IV Q5M PRN PRN Reason: Oversedation/Resp depression Stop: 03/02/25 12:15 Ondansetron HCl (Ondansetron Inj 2 Mg/Ml 2 Ml Vial) 4 mg IV ONCE PRN PRN Reason: PACU Use Only-Nausea/Vomiting Stop: 01/31/25 18:40 Ondansetron HCl (Ondansetron Inj 2 Mg/Ml 2 Ml Vial) 4 mg IV Q6H PRN PRN Reason: Nausea &/or Vomiting Stop: 03/02/25 12:15 Ondansetron HCl (Ondansetron 4 Mg Od Tab) 4 mg PO Q6H PRN PRN Reason: Nausea Stop: 03/02/25 12:15 Oxycodone HCl (Oxycodone Hcl Ir 5 Mg Tab (Immediate Release)) 5 - 10 mg PO Q4H PRN PRN Reason: MOD/SEV Pain & Pre PT Stop: 02/14/25 12:15 Pantoprazole Sodium (Pantoprazole 40 Mg Tab) 40 mg PO DAILY PRN PRN Reason: reflux Stop: 03/02/25 12:20 Pneumococcal Polyvalent Vaccine (Do Not Administer Pneumococcal Vaccine) 1 each N/A PRN PRN PRN Reason: Notification Stop: 03/02/25 12:15 Polyethylene Glycol (Polyethylene (Miralax) 17 Gm Pack) 17 gm PO Q6 JEREMY Stop: 03/03/25 05:59 Senna/Docusate Sodium (Docusate Sodium/Senna 50/8.6mg Tab) 2 tab PO HS JEREMY Stop: 03/02/25 20:59 Sodium Biphosphate/Sodium Phosphate (Sod Phosphate/Sod Biphosphate Enema 132 Ml Btl) 132 ml KS ONE PRN PRN Reason: Constipation Stop: 03/02/25 12:15 Tramadol HCl (Tramadol Hcl 50 Mg Tablet) 50 - 100 mg PO Q4H PRN PRN Reason: MOD/SEV Pain & Pre PT Stop: 03/02/25 12:15 Umeclidinium/Vilanterol (Umeclidinium/Vilanterol 62.5/25mcg 7 Puffs/Inhaler) 1 puffs INH QAM [facility] Stop: 03/03/25 08:59 Vitamin D (Cholecalciferol 25 Mcg (1000 Units) Tab) 100 mcg PO QAM JEREMY Stop: 03/03/25 08:59
[2025-01-31] MEDS: DOCUSATE SODIUM/SENNA 50/8.6MG TAB PO SCH (20:19)
[2025-01-31] MEDS: ESCITALOPRAM OXALATE 10 MG TAB PO SCH (20:20)
[2025-02-01] MEDS: POLYETHYLENE (MIRALAX) 17 GM PACK PO SCH (05:59)
[2025-02-01 07:01] LABS: Hematocrit (blood only) 35.0 % (37.0-47.0); Hemoglobin 11.5 g/dl (12.0-16.0); Immature Granulocytes # (auto) 0.02 K/uL (0.01-0.20); Immature Granulocytes % (auto) 0.2 %; Mean Corpuscular Hemoglobin 30.4 pg (25.0-34.0); Mean Corpuscular Volume 92.6 fL (80.0-100.0); Platelet Count 231 K/uL (130-400); RDW Standard Deviation 44.7 fL (36.4-46.3); Red Blood Count 3.78 M/uL (4.20-5.40); White Blood Count 8.41 K/ul (4.8-10.8)
[2025-02-01 07:29] LABS: Anion Gap 8.0 (3-11); Calcium 8.8 mg/dl (8.6-10.3); Carbon Dioxide 26.0 mmol/L (21-32); Chloride 106.0 mmol/L (98-107); Potassium 3.9 mmol/L (3.5-5.1); Sodium 140.0 mmol/L (136-145)
[2025-02-01 07:35] LABS: Blood Urea Nitrogen 21.0 mg/dl (6-23); Creatinine Clr Calc Pharmacy 77.6 ml/min; Glucose 130.0 mg/dl (70-99(Fasting))
[2025-02-01] MEDS: LEVOTHYROXINE SODIUM 175 MCG TABLET PO SCH (07:35)
[2025-02-01] MEDS: ACETAMINOPHEN 500 MG TAB PO PRN (07:56)
[2025-02-01] MEDS: CHOLECALCIFEROL 25 MCG (1000 UNITS) TAB PO SCH (09:08)
[2025-02-01] MEDS: ATORVASTATIN 40 MG TAB PO SCH (09:09)
[2025-02-01] MEDS: ASCORBIC ACID 500 MG TAB PO SCH (09:09)
[2025-02-01] MEDS: dexAMETHasone 6 MG in SYRINGE 0 ML IV SCH (09:09)
[2025-02-01] MEDS: FLUTICASONE PROPIONATE NA SPR 16 GM BTL SCH (09:12)
[2025-02-01] MEDS: UMECLIDINIUM/VILANTEROL 62.5/25MCG 7 PUFFS/INHALER INH SCH (09:12)
--- NOTE | 2025-02-01 10:14 | Orthopedic Progress Note ---
Date of Service February 01, 2025 Assessment & Plan (1) Multilevel lumbosacral spondylosis with radiculopathy: Plan: At this time we will continue physical therapy monitor her progress hopefully discharge home in next few days. Admission and Anticipated Discharge Date Admission Date: January 31, 2025 Subjective Patient's back pain is controlled. She notices some numbness to the left foot. She is up and ambulating. Physical Exam Physical Exam: On exam she appears comfortable. She is ambulating with walker. Strength is intact. Results & Data Vital Signs (Past 12 Hours) Vital Signs Temp Pulse Resp BP Pulse Ox O2 Del Method 02/01/25 07:07 36.6 C 80 16 115/75 96 Room Air 02/01/25 03:23 36.4 C 64 16 139/82 96 Room Air 01/31/25 23:07 36.5 C 69 18 133/72 96 Room Air Queries Orthopedic Spine Obesity: Yes
--- NOTE | 2025-02-01 14:15 | Hospitalist Progress Note ---
Date of Service February 01, 2025 Assessment & Plan (1) Multilevel lumbosacral spondylosis with radiculopathy: (2) Bilateral carotid artery stenosis: (3) Dyslipidemia: (4) Hypothyroidism: (5) Chronic obstructive pulmonary disease: (6) Anxiety: (7) GERD (gastroesophageal reflux disease): Plan 59 year old female with PMH significant for CAD, bilateral carotid artery stenosis, history of thyroid cancer s/p thyroidectomy and post-surgical hypothyroidism, COPD, GERD, anxiety, history of stage IV carcinoma of the lung in remission on Keytruda, and multilevel lumbosacral spondylosis with radiculopathy who is status post L4-S1 decompression and fusion on 01/31/[address] Nur. We have been consulted for post operative medical management. Multilevel lumbosacral spondylosis with radiculopathy Postoperative acute blood loss anemia -S/P POD L4-S1 decompression and fusion on 01/31/[address] Nur Activity level, pain control, wound care, DVT prophylaxis per primary team Continue PT OT Bowel regimen to prevent constipation Continue incentive spirometry No indication for blood transfusion, monitor CBC Bilateral carotid artery stenosis Follows with Vascular Surgery for medical management Continue atorvastatin Hypothyroidism Continue levothyroxine COPD Continue inhalers GERD Continue pantoprazole Anxiety Continue escitalopram History of lung cancer In remission On Keytruda every 6 weeks DVT Px: SCDs and TEDs per primary team Code Status: Full code Admission and Anticipated Discharge Date Admission Date: January 31, 2025 Subjective Patient is seen and examined at bedside Lower back pain at surgical site is controlled States having some left lower extremity numbness but otherwise no other complaints + Flatus, no BM today Denies any chest pain, dyspnea, nausea, vomiting, abdominal pain States that she walked in the hallway today with no issues Review of Systems Review of Systems: All systems reviewed & are unremarkable except as noted in Subjective Physical Exam Physical Exam: Physical Exam: Vitals signs as noted above General Appearance:Obese, no apparent distress Head: normocephalic, Atraumatic Eyes: normal inspection, EOMI Neck: supple, Trachea midline Respiratory/Chest: Normal breath sounds, CTA, No accessory muscle use Cardiovascular: S1, S2, No murmur Abdomen/GI:Soft, Non tender, Bowel sounds present Back: Surgical site in dressing Extremities/Musculoskeletal:normal inspection, Trace edema Neurologic/Psych:AAOX3, grossly no focal neurological deficits Skin: normal color, warm Results & Data Results & Data Vital Signs (Past 12 Hours) Vital Signs Temp Pulse Pulse Resp BP Pulse Ox O2 Del Method 02/01/25 11:26 37.1 C 73 16 127/75 96 Room Air 02/01/25 07:07 36.6 C 80 16 115/75 96 Room Air 02/01/25 03:23 36.4 C 64 16 139/82 96 Room Air Laboratory Results Short CBC 02/01/25 Range/Units 06:11 WBC 8.41 (4.8-10.8) K/ul Hgb 11.5 L (12.0-16.0) g/dl Hct 35.0 L (37.0-47.0) % Plt Count 231 (130-400) K/uL BMP 02/01/25 06:11 Sodium 140 Potassium 3.9 Chloride 106 Carbon Dioxide 26 BUN 21 Creatinine 0.99 Glucose 130 H Calcium 8.8
[2025-02-02] MEDS: MAGNESIUM HYDROXIDE SUSP 30 ML UDC PO PRN (01:53)
[2025-02-02] MEDS: ONDANSETRON INJ 2 MG/ML 2 ML VIAL IV PRN (01:53)
[2025-02-02] MEDS: HYDROmorphone INJ 1 MG/ML SYRINGE IV PRN (02:35)
[2025-02-02 06:42] LABS: Hematocrit (blood only) 33.8 % (37.0-47.0); Hemoglobin 11.0 g/dl (12.0-16.0); Mean Corpuscular Hemoglobin 30.5 pg (25.0-34.0); Mean Corpuscular Volume 93.6 fL (80.0-100.0); Platelet Count 235 K/uL (130-400); RDW Standard Deviation 45.2 fL (36.4-46.3); Red Blood Count 3.61 M/uL (4.20-5.40); White Blood Count 10.21 K/ul (4.8-10.8)
[2025-02-02 07:05] LABS: Anion Gap 6.0 (3-11); Blood Urea Nitrogen 23.0 mg/dl (6-23); Calcium 8.6 mg/dl (8.6-10.3); Carbon Dioxide 31.0 mmol/L (21-32); Chloride 100.0 mmol/L (98-107); Creatinine Clr Calc Pharmacy 72.5 ml/min; Glucose 131.0 mg/dl (70-99(Fasting)); Potassium 3.7 mmol/L (3.5-5.1); Sodium 137.0 mmol/L (136-145)
[2025-02-02] MEDS: HYDROmorphone INJ 0.5 MG/0.5 ML SYR IV PRN (10:14)
--- NOTE | 2025-02-02 11:26 | Orthopedic Progress Note ---
Date of Service February 02, 2025 Assessment & Plan (1) Multilevel lumbosacral spondylosis with radiculopathy: Plan: At this time we will continue physical therapy. Will use intermittent Toradol for soreness. Will consider discharge in the next few days. Admission and Anticipated Discharge Date Admission Date: January 31, 2025 Subjective Patient a bit more sore today. Having difficulty getting out of a chair secondary to buttock pain. She is tolerating physical therapy. Ambulating the halls. Physical Exam Physical Exam: On exam we did have her stand out of her chair. She is able to stand without difficulty and had no leg pain. She had good strength testing. Results & Data Vital Signs (Past 12 Hours) Vital Signs Temp Pulse Resp BP Pulse Ox O2 Del Method 02/02/25 06:55 36.8 C 113 H 16 106/65 92 Room Air 02/02/25 02:00 152/81 H Queries Orthopedic Spine Obesity: Yes
[2025-02-02] MEDS: KETOROLAC 30 MG/ML VIAL IV ONE (12:23)
--- NOTE | 2025-02-02 14:58 | Hospitalist Progress Note ---
Date of Service February 02, 2025 Assessment & Plan (1) Multilevel lumbosacral spondylosis with radiculopathy: (2) Bilateral carotid artery stenosis: (3) Dyslipidemia: (4) Hypothyroidism: (5) Chronic obstructive pulmonary disease: (6) Anxiety: (7) GERD (gastroesophageal reflux disease): Plan 59 year old female with PMH significant for CAD, bilateral carotid artery stenosis, history of thyroid cancer s/p thyroidectomy and post-surgical hypothyroidism, COPD, GERD, anxiety, history of stage IV carcinoma of the lung in remission on Keytruda, and multilevel lumbosacral spondylosis with radiculopathy who is status post L4-S1 decompression and fusion on 01/31/[address] Nur. We have been consulted for post operative medical management. Multilevel lumbosacral spondylosis with radiculopathy Postoperative acute blood loss anemia -S/P POD L4-S1 decompression and fusion on 01/31/[address] Nur Activity level, pain control, wound care, DVT prophylaxis per primary team Continue PT OT Bowel regimen to prevent constipation Continue incentive spirometry No indication for blood transfusion, monitor CBC Hemoglobin 11.0 today Added muscle relaxants as needed to help with spasms Orthopedics following Bilateral carotid artery stenosis Follows with Vascular Surgery for medical management Continue atorvastatin Hypothyroidism Continue levothyroxine COPD Continue inhalers GERD Continue pantoprazole Anxiety Continue escitalopram History of lung cancer In remission On Keytruda every 6 weeks DVT Px: SCDs and TEDs per primary team Code Status: Full code Admission and Anticipated Discharge Date Admission Date: January 31, 2025 Subjective Patient is seen and examined at bedside Reports lower back pain surgical site associated with spasms Also reports nausea overnight No BM today Continues to have flatus No other complaints today Denies any chest pain, dyspnea,vomiting, abdominal pain Review of Systems Review of Systems: All systems reviewed & are unremarkable except as noted in Subjective Physical Exam Physical Exam: Physical Exam: Vitals signs as noted above General Appearance:Obese, no apparent distress Head: normocephalic, Atraumatic Eyes: normal inspection, EOMI Neck: supple, Trachea midline Respiratory/Chest: Normal breath sounds, CTA, No accessory muscle use Cardiovascular: S1, S2, No murmur Abdomen/GI:Soft, Non tender, Bowel sounds present Back: Surgical site in dressing Extremities/Musculoskeletal:normal inspection, Trace edema Neurologic/Psych:AAOX3, grossly no focal neurological deficits Skin: normal color, warm Results & Data Results & Data Vital Signs (Past 12 Hours) Vital Signs Temp Pulse Resp BP Pulse Ox O2 Del Method 02/02/25 13:53 36.6 C 101 H 16 135/76 93 Room Air 02/02/25 06:55 36.8 C 113 H 16 106/65 92 Room Air Laboratory Results Short CBC 02/02/25 Range/Units 05:55 WBC 10.21 (4.8-10.8) K/ul Hgb 11.0 L (12.0-16.0) g/dl Hct 33.8 L (37.0-47.0) % Plt Count 235 (130-400) K/uL BMP 02/02/25 05:55 Sodium 137 Potassium 3.7 Chloride 100 Carbon Dioxide 31 BUN 23 Creatinine 1.06 Glucose 131 H Calcium 8.6
[2025-02-02] MEDS: KETOROLAC 30 MG/ML VIAL IV PRN (18:41)
[2025-02-03] MEDS: CYCLOBENZAPRINE HCL 5 MG TAB PO PRN (03:02)
[2025-02-03 06:54] VITALS: TEMP 97.9
--- NOTE | 2025-02-03 09:21 | Orthopedic Progress Note ---
Date of Service February 03, 2025 Assessment & Plan (1) Multilevel lumbosacral spondylosis with radiculopathy: Plan: At this time we will continue to advance her bowel regiment and continue with PT. Plan for discharge tomorrow. Admission and Anticipated Discharge Date Admission Date: January 31, 2025 Subjective Patient's back pain is improved. Ambulation is improved. She has had no bowel movement yet. Physical Exam Physical Exam: She is ambulating the halls with a walker. She appears much more comfortable. Good strength testing. Results & Data Vital Signs (Past 12 Hours) Vital Signs Temp Pulse Resp BP Pulse Ox O2 Del Method 02/03/25 06:53 36.6 C 76 16 112/73 91 Room Air Queries Orthopedic Spine Obesity: Yes
[2025-02-03] MEDS: FAMOTIDINE 20 MG TAB PO PRN (09:46)
[2025-02-03 14:35] VITALS: RESP 18
--- NOTE | 2025-02-03 15:11 | Hospitalist Progress Note ---
Date of Service February 03, 2025 Assessment & Plan (1) Multilevel lumbosacral spondylosis with radiculopathy: (2) Bilateral carotid artery stenosis: (3) Dyslipidemia: (4) Hypothyroidism: (5) Chronic obstructive pulmonary disease: (6) Anxiety: (7) GERD (gastroesophageal reflux disease): Plan 59 year old female with PMH significant for CAD, bilateral carotid artery stenosis, history of thyroid cancer s/p thyroidectomy and post-surgical hypothyroidism, COPD, GERD, anxiety, history of stage IV carcinoma of the lung in remission on Keytruda, and multilevel lumbosacral spondylosis with radiculopathy who is status post L4-S1 decompression and fusion on 01/31/[address] Nur. We have been consulted for post operative medical management. Multilevel lumbosacral spondylosis with radiculopathy Postoperative acute blood loss anemia -S/P POD L4-S1 decompression and fusion on 01/31/[address] Nur Activity level, pain control, wound care, DVT prophylaxis per primary team Continue PT OT Bowel regimen to prevent constipation Continue incentive spirometry No indication for blood transfusion, monitor CBC Orthopedics following Pain is controlled, minimize narcotics as able Will obtain KUB tomorrow if remains constipated Bilateral carotid artery stenosis Follows with Vascular Surgery for medical management Continue atorvastatin Hypothyroidism Continue levothyroxine COPD Continue inhalers GERD Continue pantoprazole Anxiety Continue escitalopram History of lung cancer In remission On Keytruda every 6 weeks DVT Px: SCDs and TEDs per primary team Code Status: Full code Admission and Anticipated Discharge Date Admission Date: January 31, 2025 Subjective Patient is seen and examined at bedside Lower back pain, spasms much improved Still feels constipated No other new complaints Denies any chest pain, dyspnea,vomiting, abdominal pain Review of Systems Review of Systems: All systems reviewed & are unremarkable except as noted in Subjective Physical Exam Physical Exam: Physical Exam: Vitals signs as noted above General Appearance:Obese, no apparent distress Head: normocephalic, Atraumatic Eyes: normal inspection, EOMI Neck: supple, Trachea midline Respiratory/Chest: Normal breath sounds, CTA, No accessory muscle use Cardiovascular: S1, S2, No murmur Abdomen/GI:Soft, Non tender, Bowel sounds present Back: Surgical site in dressing Extremities/Musculoskeletal:normal inspection, Trace edema Neurologic/Psych:AAOX3, grossly no focal neurological deficits Skin: normal color, warm Results & Data Results & Data Vital Signs (Past 12 Hours) Vital Signs Temp Pulse Resp BP Pulse Ox O2 Del Method 02/03/25 06:53 36.6 C 76 16 112/73 91 Room Air
[2025-02-04 07:11] LABS: Hematocrit (blood only) 31.1 % (37.0-47.0); Hemoglobin 10.3 g/dl (12.0-16.0); Mean Corpuscular Hemoglobin 30.8 pg (25.0-34.0); Mean Corpuscular Volume 93.1 fL (80.0-100.0); Platelet Count 261 K/uL (130-400); RDW Standard Deviation 44.4 fL (36.4-46.3); Red Blood Count 3.34 M/uL (4.20-5.40); White Blood Count 6.61 K/ul (4.8-10.8)
[2025-02-04 07:14] VITALS: BP 155/82; PULSE 82; O2SAT 95
[2025-02-04 07:32] LABS: Anion Gap 9.0 (3-11); Blood Urea Nitrogen 29.0 mg/dl (6-23); Calcium 8.8 mg/dl (8.6-10.3); Carbon Dioxide 29.0 mmol/L (21-32); Chloride 101.0 mmol/L (98-107); Creatinine Clr Calc Pharmacy 74.6 ml/min; Glucose 117.0 mg/dl (70-99(Fasting)); Potassium 4.3 mmol/L (3.5-5.1); Sodium 139.0 mmol/L (136-145)
--- NOTE | 2025-02-04 08:48 | Hospitalist Progress Note ---
Date of Service February 04, 2025 Assessment & Plan (1) Multilevel lumbosacral spondylosis with radiculopathy: (2) Bilateral carotid artery stenosis: (3) Dyslipidemia: (4) Hypothyroidism: (5) Chronic obstructive pulmonary disease: (6) Anxiety: (7) GERD (gastroesophageal reflux disease): Plan 59 year old female with PMH significant for CAD, bilateral carotid artery stenosis, history of thyroid cancer s/p thyroidectomy and post-surgical hypothyroidism, COPD, GERD, anxiety, history of stage IV carcinoma of the lung in remission on Keytruda, and multilevel lumbosacral spondylosis with radiculopathy who is status post L4-S1 decompression and fusion on 01/31/[address] Nur. We have been consulted for post operative medical management. Multilevel lumbosacral spondylosis with radiculopathy Postoperative acute blood loss anemia -S/P POD L4-S1 decompression and fusion on 01/31/[address] Nur Activity level, pain control, wound care, DVT prophylaxis per primary team Continue PT OT Bowel regimen to prevent constipation And bowel movement today Continue incentive spirometry No indication for blood transfusion, monitor CBC Pain is controlled, minimize narcotics as able Advised to follow-up with PCP in 1 week on discharge Bilateral carotid artery stenosis Follows with Vascular Surgery for medical management Continue atorvastatin Hypothyroidism Continue levothyroxine COPD Continue inhalers GERD Continue pantoprazole Anxiety Continue escitalopram History of lung cancer In remission On Keytruda every 6 weeks DVT Px: SCDs and TEDs per primary team Code Status: Full code Disposition Home Admission and Anticipated Discharge Date Admission Date: January 31, 2025 Subjective Patient is seen and examined at bedside No new complaints today Lower back pain at surgical site is controlled Feels well Family at bedside Denies any chest pain, dyspnea,vomiting, abdominal pain Plan to be discharged home today Review of Systems Review of Systems: All systems reviewed & are unremarkable except as noted in Subjective Physical Exam Physical Exam: Physical Exam: Vitals signs as noted above General Appearance:Obese, no apparent distress Head: normocephalic, Atraumatic Eyes: normal inspection, EOMI Neck: supple, Trachea midline Respiratory/Chest: Normal breath sounds, CTA, No accessory muscle use Cardiovascular: S1, S2, No murmur Abdomen/GI:Soft, Non tender, Bowel sounds present Back: Surgical site in dressing Extremities/Musculoskeletal:normal inspection, Trace edema Neurologic/Psych:AAOX3, grossly no focal neurological deficits Skin: normal color, warm Results & Data Results & Data Vital Signs (Past 12 Hours) Vital Signs Pulse Resp BP Pulse Ox O2 Del Method 02/04/25 07:14 82 18 155/82 H 95 Room Air Laboratory Results Short CBC 02/04/25 Range/Units 06:38 WBC 6.61 (4.8-10.8) K/ul Hgb 10.3 L (12.0-16.0) g/dl Hct 31.1 L (37.0-47.0) % Plt Count 261 (130-400) K/uL BMP 02/04/25 06:38 Sodium 139 Potassium 4.3 Chloride 101 Carbon Dioxide 29 BUN 29 H Creatinine 1.03 Glucose 117 H Calcium 8.8
--- NOTE | 2025-02-04 12:01 | Discharge Summary ---
Date of Service February 04, 2025 Admission HPI Per Admitting Provider This is a 59-year-old female presents chronic persistent back and leg pain after failing course of nonoperative care is here for surgical invention. Principal Diagnosis Lumbar spondylosis with radiculopathy Discharge Data Allergies Allergy/AdvReac Type Severity Reaction Status Date / Time egg Allergy Mild nasal Verified 01/31/25 06:18 congestion mold Allergy Mild nasal Verified 01/31/25 06:18 congestion/headache Penicillins Allergy Mild Rash Verified 01/31/25 06:18 fentanyl AdvReac Mild "kept me Verified 01/31/25 06:18 awake that night afterwards, I could not sleep" Consultations 01/31/25 12:16 Consult Hospitalist Routine Procedures Performed Operation Date: 01/31/25 07:45 Actual Procedures p L4-S1 Decompression and Fusion(Not Applicable) - Jc Nur DO Ordered Studies 01/31/25 07:45 FL lumbar spine 2-3V Routine Hospital Course (1) Multilevel lumbosacral spondylosis with radiculopathy: Patient underwent multilevel lumbar decompression fusion tolerated well was taken to orthopedic for postoperative. Post ablation she had progressive improvement throughout her stay improvement of her ambulation leg pain and strength. Separately discharged home. Discharge orders instructions found in chart for further review. Total Time Total Time Spent Total Time Spent (In Minutes): 20 minutes Discharge Plan Discharge Items Patient Disposition: Home - Self-Care Reason For Visit: Lumbar Facet Arthropathy, Two Level Lumbosacral Sp Discharge Diagnosis: Lumbosacral spondylosis with radiculopathy Activity: As commented below Non-emergency contact: Primary Care Provider Call non-emergency contact if: you have any medication questions Follow-up/Referrals: Rogelio Yeboah PA-C [Primary Care Provider] - Diet: Regular Addtl Attending Provider Instructions: ACTIVITY RECOMMENDATIONS: SELF CARE INSTRUCTIONS AFTER THORACIC/LUMBAR FUSIONS 1. You may walk to your tolerance. It is good exercise for your legs and back. Expect some back and intermittent leg aches and pains. 2. You may perform "counter-top" level activities (make a sandwich, quinton with a project, etc.). 3. No bending or lifting of more than 10 pounds or back twisting of any nature (roll like a log when turning in bed). 4. You may ride in a car for 20-30 minutes at a time. No driving until after your first visit with your doctor. 5. Frequent changes of position and restricting sitting to 30 minutes at a time will help limit the amount of back spasms and stiffness you may experience. 6. You may discontinue the use of ambulatory aids (cane, crutches, etc.) once your strength and confidence allow. 7. You may optical engineering technician the shower and let water strike your incision when you arrive home at least once daily. Do not take a tub bath, sit in a hot tub or go into a swimming pool until after your first recheck in the office. 8. You may resume previous diet. SPECIAL CARE INSTRUCTIONS: VERY IMPORTANT TO READ AND REVIEW A. Your surgical incision has been closed with a cosmetic suture under the skin that will dissolve in about 6 weeks. In 14 days, you can use a pair of clean scissors and cut the suture that is left outside of the skin at the ends of your incision. 1. The small skin tapes can be removed 7 days after surgery if they have not fallen off by that point. 2. You may keep the wound open to air as much as possible to promote healing after post-op day number 5 unless told otherwise by your doctor. 3. If you think the wound looks like it is becoming infected (redness or worsening drainage) and/or you are experiencing fever, chill or worsening back pain and muscle spasms, contact the office so that we may evaluate you as soon as possible. B. Complications are uncommon, but please contact us if you have any signs or symptoms of: 1. wound infection (fever higher than 102.5 degrees F, redness, separation of wound, drainage, or increasing pain from the incision) 2. blood clots in legs (pain, swelling, redness and warmth in legs) 3. urinary tract infection (fever higher than 102.5 degrees F, burning upon urination or increased frequency of urination) 4. nerve problems (inability to walk on your toes or heels, numbness, loss of bowel or bladder control) 5. any other symptoms that concern you C. Please call the office at if you have any concerns or questions about your operation or recovery. D. No smoking! Smoking drastically decreases the chance of a solid fusion. E. Do not take any anti-inflammatory medications (Indocin, Advil, Motrin, Aspirin, Naprosyn, etc.) as these may inhibit the chance of a solid fusion. Tylenol is okay to take for pain. MANAGING PAIN AFTER SPINAL SURGERY 1. Narcotic medication is intended for short-term use and will be provided for surgical pain. Surgical pain usually lasts for a period of 4-6 weeks. Narcotic medication includes Percocet, Vicodin, Darvocet, Tylenol #3 or Lortab. 2. Longer-term pain is more appropriately treated with non-narcotic medication such as Tylenol ES. 3. Muscle spasm is not appropriately treated with narcotics. Muscle relaxers such as Soma, Flexeril or Skelaxin can be used along with Tylenol ES. 4. Remember that we all live with some "aches and pains". This is not unusual or uncommon after an injury or as we get older. a. Back pain is expected and may include muscle spasms for 4 to 6 weeks after surgery. The pain should gradually improve. If the pain worsens for no apparent reason, please contact the office. b. Intermittent leg pain may also be experienced and should not be concerned about unless it worsens for no apparent reason. If so, please contact the office. 5. We will provide appropriate medication within the normal guidelines of their prescribed use. We will also be very cautious and aware of potential abuse and extended duration of patients' medication needs. a. Pain medications are for your comfort and to assist with sleep and rest so that the tissue can heal. They are not provided in order to return to normal activity and should not be used through the day. To do so or worsening pain at night can result from ongoing tissue damage and development of tolerance to the prescribed medicine. 6. Please allow 2-3 days to process refills. Prescriptions will not be mailed but must be picked up at the office. FOLLOW UP VISIT: Keep your scheduled follow-up appointment. Any questions, please call the office at . Pending Studies at Discharge: No Stand-Alone Forms: My [facility], Pain - Opioid Pain Management, Smoking Cessation Medications and DC Order Prescriptions: New tramadol 50 mg tablet 50 mg PO Q6H PRN (Reason: pain, moderate) Qty: 30 0RF oxycodone 5 mg tablet 5 mg PO Q6H PRN (Reason: pain) Qty: 30 0RF tramadol 50 mg tablet 50 mg PO Q6H PRN (Reason: pain, moderate) Qty: 30 0RF oxycodone 5 mg tablet 5 mg PO Q6H PRN (Reason: pain) Qty: 30 0RF Continued levothyroxine 150 mcg Tablet 175 mcg PO QAM escitalopram oxalate 10 mg Tablet 10 mg PO HS fluticasone propionate [Flonase Allergy Relief] 50 mcg/actuation [place],Suspension 1 spray INTRANASAL QAM Rx Instructions: administer into each nostril umeclidinium-vilanterol [Anoro Ellipta] 62.5-25 mcg/actuation Blister With Device 1 inh INHALATION QAM albuterol sulfate 90 mcg/actuation Hfa Aerosol Inhaler 2 puff INHALATION Q6H PRN (Reason: Shortness Of Breath) ascorbic acid (vitamin C) [Vitamin C] 500 mg Tablet 500 mg PO QAM cholecalciferol (vitamin D3) 100 mcg (4,000 unit) Capsule 4,000 unit PO QAM acetaminophen 650 mg Tablet Extended Release 500 mg PO TID PRN (Reason: Pain) tramadol 50 mg Tablet 50 mg PO TID Keytruda 25 mg/mL Solution 25 mg IV .Q6WK pantoprazole 40 mg PO DAILY PRN (Reason: reflux) atorvastatin 40 mg Tablet 40 mg PO QAM Discharge Orders: Discharge Order (Routine); Ordered 02/04/25 Ordered By: Jc Beavers/Other Patient Handouts: Lumbar Fusion Dc Admission Data Admit Date/Time: 01/31/25 10:30 Attending Provider: Jc Nur Admit Provider: Jc Nur Primary Care Provider: Rogelio Yeboah Other Providers: Caitlyn Brantley Other Interventions: Discharge Summary Assessment (RN) Last Done: 02/04/25 09:46
== END 2025-02-04 11:00 | disposition home or self-care (01) | DRG 427 ==
LOC: ASU 05:58 → 3W 10:30